=== PATIENT | female | born 1955 | race Caucasian/White ===

== ENCOUNTER 2019-10-29 13:31 | Emergency (ER) | payer BC, SELFPAY ==
--- NOTE | ~2019-10-29 | XR_ITS ---
EXAMINATION: XR lumbar spine min 4V EXAM DATE: 10/29/2019 14:31 INDICATION: Back pain for 10 days. TECHNIQUE: Lumber spine frontal, lateral, bilateral oblique projections. Coned down frontal and lat eral L5-S1 lumbar projections for interpretation. Comparison is made to prior examination from 09/25/19 16. FINDINGS: No endplate erosive change to suggest discitis. There is 5 mm retrolisthesis L1 on L2, 3 mm retrolisthesis L2 on L3 and L3 on L4. There is moderate disc disease at L5-S1. Mild to moderate disc disease L-1-2, L3-4 and L4-5, mild at L2-3. There are small upper lumbar endplate osteophytes. There is mild to moderate lumbar facet arthropathy. There is no spondylolysis. Sacrum, sacroiliac joints, sacral arcuate lines are intact. Paraspinal soft tissue is unremarkable. IMPRESSION: Mild to moderate lumbar spondylosis. No acute findings. Reviewed, dictated and finalized at location A.
[2019-10-29 13:27] VITALS: BP 174/78; PULSE 102; RESP 17; TEMP 36.8; O2SAT 96
--- NOTE | 2019-10-29 13:50 | ED.BACK ---
HPI - Back Pain/Injury General Chief Complaint: Back Pain/Injury Stated Complaint: back pain x10 days Source: patient and family Mode of arrival: EMS Limitations: no limitations History of Present Illness HPI Narrative: Patient is a 64-year-old female who presents to emergency department for evaluation of lower back pain noting aching pain of the right buttock that radiates into the thigh patient denies injury or trauma has taken [id number] medications with some improvement but notes today the pain worsened patient denies any fever chills nausea vomiting or illness patient has not been seen for this complaint also took a muscle relaxer today patient has not seen primary care but notes that she has had a similar occurrence in the past Related Data Allergies Allergy/AdvReac Type Severity Reaction Status Date / Time codeine Allergy Mild Nausea and Verified 10/29/19 13:35 Vomiting Sulfa (Sulfonamide Allergy Mild Rash Verified 10/29/19 13:35 Antibiotics) Review of Systems Review of Systems: All systems reviewed & are unremarkable except as noted in HPI and below PMFSH Past Medical History Medical History (Updated 10/29/19 @ 15:36 by Mayur Mora PA-C) Obesity Social History Social History Smoking status: Never smoker Exam Narrative: Exam Narrative: GENERAL: Well-appearing, obese, and in no acute distress. HEAD: Normocephalic, atraumatic. EYES: PERRLA and EOMI. ENT: Nares clear, no rhinorrhea or epistaxis. Mucous membranes moist. NECK: Supple. No adenopathy or masses. CHEST: Clear to auscultation. No respiratory distress. No wheezes rales or rhonchi HEART: Regular rate and rhythm. No murmur heard. Normal peripheral pulses. ABDOMEN: Soft, nontender, nondistended EXTREMITIES: Normal range of motion. No edema. Tenderness over the right buttock SI region no midline tenderness SKIN: Warm, dry, no rash. NEURO: No focal deficits. Alert and oriented x3. Cranial nerves II through XII grossly intact. Motor and sensory intact and symmetrical in the extremities neurovascularly intact. Capillary refill less than 2 seconds PSYCH: Normal mood and affect. Course Course Emergency Course: Patient in the room in no distress aware of case findings treatment plan and diagnosis agreeing to follow-up as directed provided with reasons to return given fluids and medications in the emergency department as well as IV antibiotic will be treated for back pain and urinary tract infection Vital Signs Vital signs: Vital Signs Temperature 98.2 F 10/29/19 13:27 Pulse Rate 102 H 10/29/19 13:27 Respiratory Rate 17 10/29/19 13:27 Blood Pressure 174/78 H 10/29/19 13:27 Pulse Oximetry 96 10/29/19 13:27 Temperature 98.5 F 10/29/19 15:25 Pulse Rate 62 10/29/19 15:25 Respiratory Rate 18 10/29/19 15:25 Blood Pressure 148/78 H 10/29/19 15:25 Pulse Oximetry 97 10/29/19 15:25 MDM - Back Pain/Injury MDM Narrative Medical decision making narrative: Patients pain is positional in nature and localized to back without signs of cord compression or cauda equina based on neurological exam, skeletal exam and history. No fever or other significant factors to suggest osteomyelitis or spinal epidural abscess. Will also be treated for urinary tract infection. No pulsatile masses noted on exam. Patient ambulates with steady gait and is stable for outpatient management given case findings. Lab Data Result diagrams: 10/29/19 14:08 10/29/19 14:08 Labs: Lab Results 10/29/19 10/29/19 10/29/19 Range/Units 14:08 14:08 14:08 WBC 7.5 (4.5-10.0) K/mm3 RBC 4.03 L (4.2-5.4) M/mm3 Hgb 12.2 (12.0-15.0) g/dL Hct 37.0 (37.0-47.0) % MCV 91.8 (80-100) fl MCH 30.3 (26-34) pg MCHC 33.0 (32-36) g/dl RDW 14.5 (11.5-14.5) % Plt Count 238 (150-375) k/mm3 MPV 9.6 (7.4-10.4) fl Immature
[2019-10-29] MEDS: diazePAM 5 MG TABLET PO (14:03)
[2019-10-29] MEDS: SODIUM CHLORIDE 0.9% IV 1,000 ML 999 ML IV CONT ×2 (14:05→15:00)
[2019-10-29 14:15] LABS: Basophils Absolute Auto 0.1 K/mm3 (0.0-0.1); Basophils Percent Auto 0.7 % (0.2-1.2); Eosinophils Absolute Auto 0.1 K/mm3 (0-0.3); Eosinophils Percent Auto 1.7 % (0-4.4); Hemoglobin 12.2 g/dL (12.0-15.0); Immature Granulocyte Absolute 0.04 K/mm3 (0.00-0.031); Immature Granulocyte Percent A 0.5 % (0-0.5); Lymphocytes Absolute Auto 1.92 K/mm3 (0.9-3.2); Lymphocytes Percent Auto 25.8 % (18.3-44.2); Mean Corpuscular Hemoglobin 30.3 pg (26-34); Mean Corpuscular Volume 91.8 fl (80-100); Mean Platelet Volume 9.6 fl (7.4-10.4); Monocytes Absolute Auto 0.5 K/mm3 (0.1-0.6); Monocytes Percent Auto 6.3 % (2.6-8.5); Neutrophils Absolute Auto 4.8 K/mm3 (1.3-6.7); Platelet Count Result 238 k/mm3 (150-375); Red Blood Count 4.03 M/mm3 (4.2-5.4); Red Cell Distribution Width 14.5 % (11.5-14.5); White Blood Count 7.5 K/mm3 (4.5-10.0)
[2019-10-29 14:23] LABS: Add Urine Microscopic? YES; Appearance Urine Cloudy (Clear); Bacteria Urine 2+ /hpf; Bilirubin Urine Negative (Negative); Blood Urine Negative (Negative); Color Urine Yellow (Yellow); Glucose Urine UA Negative (Negative); Ketones Urine Negative (Negative); Leukocyte Esterase Ur 1+ LEU/UL (Negative); Mucus Urine Rare /lpf; Nitrate Urine Negative (Negative); Protein Urine 3+ mg/dL (Negative); Specific Grav Ur 1.015 (1.001-1.035); Squamous Epithelial Cell Urine Moderate /hpf (Few); Urobilinogen Urine Negative mg/dL (<2.0); WBC Urine 21-30 /hpf
[2019-10-29 14:26] LABS: Anion Gap 7 mmol/L (8-16); Blood Urea Nitrogen 25 mg/dL (7-17); Calcium 10.1 mg/dL (8.4-10.2); Carbon Dioxide 27 mmol/L (22-30); Chloride 105 mmol/L (98-107); Estimated CRCL calculation 63 ml/min; Estimated Glomerular Filt Rate > 60; Glucose 105 mg/dL (65-105); Potassium 3.8 mmol/L (3.4-5.0); Sodium 139 mmol/L (137-145)
[2019-10-29 15:25] VITALS: BP 148/78; PULSE 62; RESP 18; TEMP 36.9; O2SAT 97
[2019-10-29] MEDS: KETOROLAC 30 MG/ML VIAL (*BKC) IV PUSH (15:38)
[2019-10-29 16:11] VITALS: TEMP 36.9
== END 2019-10-29 17:05 | disposition home or self-care (01) ==
PROVIDERS: Emergency Medicine Emergency Medical Services; Emergency Provider Emergency Medicine; PCP Emergency Medicine
DX: M54.16 Radiculopathy, lumbar region (principal); N39.0 Urinary tract infection, site not specified; E66.9 Obesity, unspecified; Z68.33 Body mass index [BMI] 33.0-33.9, adult
CPT/HCPCS: 36415; 72110; 80048; 81001; 85025; 87077; 87086; 87088; 87186; 96361; 96365; 96367; 96375; 99284; A9270; J0131; J0696; J1100; J1885; J7030

== ENCOUNTER → 2019-12-21 15:49 | Outpatient (CLI) | payer BC, SELFPAY ==
--- NOTE | ~2019-12-21 | MM_ITS ---
EXAMINATION: MM screening [facility] BI w sarika HISTORY: Screening mammogram TECHNIQUE: Craniocaudal and mediolateral oblique 3-D tomosynthesis images were obtained and synthetic 2-D images were generated. CAD analysis was submitted and interpreted. COMPARISON: 05/16/2018, 04/30/2017, 09/25/2015, 05/18/2014 BREAST PARENCHYMAL COMPOSITION: There are scattered areas of fibroglandular density. FINDINGS: Stable bilateral breast masses are present, considered benign given the lack of interval ch lori. There is no evidence of suspicious mass, calcification, or architectural distortion to suggest malignancy in either breast. There has been no suspicious interval change. IMPRESSION: 1. No mammographic evidence of malignancy. 2. Recommend routine screening mammography in one year. BI-RADS Category 2: Benign finding(s). Reviewed, dictated and finalized at location A.
== END ==
PROVIDERS: PCP Emergency Medicine; Visit Provider Nurse Practitioner Obstetrics & Gynecology
DX: Z12.31 Encounter for screening mammogram for malignant neoplasm of breast (principal)
CPT/HCPCS: 77063; 77067

== ENCOUNTER → 2021-01-22 12:20 | Outpatient (CLI) | payer BC, SELFPAY ==
--- NOTE | ~2021-01-22 | MM_ITS ---
EXAMINATION: MM screening [facility] BI w sarika HISTORY: Screening TECHNIQUE: Craniocaudal and mediolateral oblique 3-D tomosynthesis images were obtained and synthetic 2-D images were generated. CAD analysis was submitted and interpreted. COMPARISON: Comparison to multiple prior studies sequentially, with oldest reviewed study dated 05/18. BREAST PARENCHYMAL COMPOSITION: Breast composed of scattered areas of fibroglandular density. FINDINGS: Left breast masses are stable compared with prior examinations. There is no evidence of jaquelin picious mass, calcification, or architectural distortion to suggest malignancy in either breast. Ther e has been no suspicious interval change. IMPRESSION: 1. No mammographic evidence of malignancy. 2. Recommend routine screening mammography in one year. BI-RADS Category 2: Benign finding(s). Reviewed, dictated and finalized at location A.
== END ==
PROVIDERS: PCP Emergency Medicine; Visit Provider Nurse Practitioner Obstetrics & Gynecology
DX: Z12.31 Encounter for screening mammogram for malignant neoplasm of breast (principal)
CPT/HCPCS: 77063; 77067

== ENCOUNTER → 2022-04-16 13:44 | Outpatient (CLI) | payer BC, SELFPAY ==
--- NOTE | ~2022-04-16 | MM_ITS ---
EXAMINATION: MM screening [facility] BI w sarika HISTORY: Screening mammogram TECHNIQUE: Craniocaudal and mediolateral oblique 3-D tomosynthesis images were obtained and synthetic 2-D images were generated. CAD analysis was submitted and interpreted. COMPARISON: 01/22/2021, 12/21/2019, 05/16/2018 BREAST PARENCHYMAL COMPOSITION: There are scattered areas of fibroglandular density. FINDINGS: There are stable bilateral breast masses, considered benign given the lack of interval ferrari ge. No suspicious mass, calcification, or architectural distortion are identified in either breast to suggest malignancy. There has been no suspicious interval change. IMPRESSION: 1. No mammographic evidence of malignancy. 2. Recommend routine screening mammography in one year. BI-RADS Category 2: Benign finding(s). Reviewed, dictated and finalized at location A. N BLOCKER
== END ==
PROVIDERS: PCP Emergency Medicine; Visit Provider Emergency Medicine
DX: Z12.31 Encounter for screening mammogram for malignant neoplasm of breast (principal)
CPT/HCPCS: 77063; 77067

== ENCOUNTER → 2023-05-19 08:38 | Outpatient (CLI) | payer MEDICARE, SELFPAY ==
--- NOTE | ~2023-05-19 | DEXA_ITS ---
Bone Density Report Name: SARAH CASE Age: 67 Sex: Female Ethnicity: White Date of : 1955 Indication: postmenopausal; screening for osteoporosis; Referring Provider: ROSA PITTMAN Study: Bone densitometry was performed. Exam Date: May 19, 2023 Accession number: [id number] Bone Density: Region BMD T-score Z-score Classification AP Spine (L1, L3, L4) 1.299 2.2 4.1 Normal Femoral Neck (Left) 1.090 2.2 3.7 Normal Total Hip (Left) 1.257 2.6 3.9 Normal Femoral Neck (Right) 1.038 1.7 3.3 Normal Total Hip (Right) 1.221 2.3 3.6 Normal Total Hip Mean 1.239 2.5 3.8 Normal World Health Organization criteria for BMD impression classify patients as: Normal (T-score at or above -1.0), Osteopenia (T-score between -1.0 and -2.5), or Osteoporosis (T-score at or below -2.5). 10-year Fracture Risk: FRAX not reported because: All T-scores for Spine Total, Hip Total, Femoral Neck at or above -1.0 Previous Exams: Region Exam Age BMD T-score BMD Change BMD Change Date g/cm2 vs Baseline vs Previous AP Spine(L1, L3, L4) 05/19/2023 67 1.299 2.2 0.163 0.088 05/16/2018 62 1.210 1.4 0.075* 0.014 09/27/2015 60 1.196 1.3 0.061* 0.019 12/04/2011 56 1.177 1.1 0.042* 0.042* 02/08/2008 52 1.135 0.7 Total Hip(Left) 05/19/2023 67 1.257 2.6 0.179 0.083 05/16/2018 62 1.173 1.9 0.096* -0.013 09/27/2015 60 1.187 2.0 0.109* 0.033* 12/04/2011 56 1.153 1.7 0.075* 0.075* 02/08/2008 52 1.078 1.1 Total Hip(Right) 05/19/2023 67 1.221 2.3 0.113 0.033 05/16/2018 62 1.189 2.0 0.080* 0.037* 09/27/2015 60 1.151 1.7 0.042* -0.047* 12/04/2011 56 1.198 2.1 0.089* 0.089* 02/08/2008 52 1.109 1.4 *Denotes significance at 95% confidence level, LSC for AP Spine = 0.022 g/cm2, LSC for Total Hip = 0.027 g/cm2 Clinical Information Provided by Patient: Has used the following medications: Vitamin D, LEVOTHYROXINE Patient maximum height was 61.8 Menopause Age: 53 No regular weight bearing exercise Drinks caffeinated beverages Onset of menses at age 14 Number of children 0 Impression: The patient has normal bone mass. No significant bone loss was observed. Discussion: Brianne
== END ==
PROVIDERS: PCP Emergency Medicine; Visit Provider Emergency Medicine
DX: Z13.820 Encounter for screening for osteoporosis (principal); Z78.0 Asymptomatic menopausal state
CPT/HCPCS: 77080

== ENCOUNTER 2023-07-21 11:15 | Outpatient (CLI) | payer MEDICARE, SELFPAY ==
--- NOTE | ~2023-07-21 | MM_ITS ---
EXAMINATION: MM screening [facility] BI w sarika HISTORY: Screening TECHNIQUE: Craniocaudal and mediolateral oblique 3-D tomosynthesis images were obtained and synthetic 2-D images were generated. CAD analysis was submitted and interpreted. COMPARISON: Comparison to multiple prior studies sequentially, with oldest reviewed study dated 11/2017. BREAST PARENCHYMAL COMPOSITION: Not dense: There are scattered areas of fibroglandular density. FINDINGS: Stable benign-appearing left breast mass. There is no evidence of suspicious mass, calcific ation, or architectural distortion to suggest malignancy in either breast. There has been no suspicio us interval change. IMPRESSION: 1. No mammographic evidence of malignancy. 2. Recommend routine screening mammography in one year. BI-RADS Category 2: Benign finding(s). Reviewed, dictated and finalized at location B.
== END 2023-07-21 11:16 ==
LOC: MICIMG 11:16
PROVIDERS: PCP Emergency Medicine; Visit Provider Emergency Medicine
DX: Z12.31 Encounter for screening mammogram for malignant neoplasm of breast (principal)
CPT/HCPCS: 77063; 77067

== ENCOUNTER 2023-12-21 11:22 | Outpatient (CLI) | payer MEDICARE, SELFPAY ==
--- NOTE | ~2023-12-21 | XR_ITS ---
3 VIEWS LUMBAR SPINE Ordering provider: Gatito Greenberg MD History: . M54.50 - Low back pain, unspecified . Comparison: October 29, 2019 FINDINGS: VERTEBRAL BODIES: No visible fracture or subluxation. Degenerative changes of the spine. Possible spondylolysis at the level of L5-S1. DISK SPACES: Narrowing of the disc L1-L2, L2-L3, L4-L5 and L5-S1. Multilevel facet joint disease. SOFT TISSUES: Normal. IMPRESSION: No acute osseous abnormality lumbar spine. Multilevel degenerative disc disease. Reviewed, dictated and finalized at location A.
== END 2023-12-21 11:23 | disposition home or self-care (01) ==
LOC: MICIMG 11:25
PROVIDERS: PCP Emergency Medicine; Visit Provider Emergency Medicine
DX: M51.369 Other intervertebral disc degeneration, lumbar region without mention of lumbar back pain or lower extremity pain (principal); M54.50 Low back pain, unspecified
CPT/HCPCS: 72100

== ENCOUNTER 2024-10-13 13:27 | Outpatient (CLI) | payer MEDICARE, SELFPAY ==
--- NOTE | ~2024-10-13 | MM_ITS ---
EXAMINATION: MM screening asif BI w sarika HISTORY: Screening TECHNIQUE: Craniocaudal and mediolateral oblique 3-D tomosynthesis images were obtained and synthetic 2-D images were generated. CAD analysis was submitted and interpreted. COMPARISON: Comparison to multiple prior studies sequentially, with oldest reviewed study dated 11/2017. BREAST PARENCHYMAL COMPOSITION: Not dense: There are scattered areas of fibroglandular density. FINDINGS: There is no evidence of suspicious mass, calcification, or architectural distortion to sugg est malignancy in either breast. There has been no suspicious interval change. IMPRESSION: 1. No mammographic evidence of malignancy. 2. Recommend routine screening mammography in one year. BI-RADS Category 1: Negative Reviewed, dictated and finalized at location A.
--- OUTSIDE RECORDS SUMMARY | 2024-10-13 13:33 | XMS_ITS | Data Portability ---
Author Organization [facility] Address [address] [place] [address] Care Team Providers Care Airframe Technical Officer Name Role Phone ROSA PITTMAN Primary Care Provider [phone] Assessment Encounter Date Assessment Date Assessment LastModified by Organization Details LastModified Time 09/15/2019 09/15/2019 Annual gynecological exam performed. Patient will come back in a year unless there are new symptoms. [email or web address] Not available 09/15/2019 13:13:01 01/22/2021 01/22/2021 Annual gynecological exam performed. Patient will come back in a year unless there are new symptoms. Not available 01/21/2021 17:21:04 Plan of Treatment Reminders Order Date Submit Date Provider Last Modified By Organization Details Last Modified Time Details Appointments None record ed. Lab None record ed. Referral None record ed. Procedures None record ed. Surgeries None record ed. Imaging None record ed. Medication Orders None record ed. Patient TargetsNo targets recorded. Patient Instructions Encounter Date Encounter Id Patient Instructions Last Modified By Organization Details Last Modified Time 09/15/2019 [id number] [email or web address] Not available 13:13:32 Reason for Referral None Reported. Results Created Date Observation Date Name Description Value Unit Range Abnormal Flag Note LastModifiedBy Organization Detail LastModifiedTime 12/22/1912/21/2019 MAMMO rbiana bilat eral No observ ation record ed. layran [facility] [address], [place], [address], 12/27/2019 15:06:21 01/23/2001/22/2021 MAMMO , scree nilson, bilat eral No observ ation record ed. jalil [facility] [address], [place], [address], 01/30/2021 12:47:22 Result Notes None recorded. Problems Name Problem SNOMED Code Status Onset Date Resolution Date Notes Provider Name and Address Organization Details Recorded Time Adult health examinat ion Completed 201101/21/2021 Routine Medical Exam;Toño rded Elsewhere : No Locati on: [facility] So urce: EHR Chron ic: N Practic e ID: [id number] Bill able Time: 11:00:00 AM [facility] 17:11:09 Obesity [id number] Completed 201401/21/2021 Obesity;R ecorded Elsewhere : No Locati on: [facility] So urce: EHR Chron ic: N Practic e ID: [id number] Bill able Time: 10:30:[address] [facility] 17:11:13 Screenin g for malignan t neoplasm of rectum Completed 201401/21/2021 Screening for malignant neoplasms of the rectum;Re corded Elsewhere : No Locati on: [facility] So urce: EHR Chron ic: N Practic e ID: [id number] Bill able Time: 10:30:00 AM Daiana [facility] 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 17:11:20 Body mass index 30+ - obesity [id number] Completed 201501/21/2021 Body mass index (BMI) 32.0-32.9 , adult;Rec orded Elsewhere : No Locati on: [facility] So urce: EHR Chron ic: N Practic e ID: [id number] Bill able Time: 11:00:00 AM Daiana [facility] 17:11:[address] Concept Completed 201701/21/2021 Encntr for equal opportunity counselor exam (general) (routine) w/o abn findings; Recorded Elsewhere : No Locati on: [facility] So urce: EHR Chron ic: N Practic e ID: [id number] Bill able Time: 10:15:00 AM [facility] 17:11:19 Screenin g for malignan t neoplasm of cervix Completed 201701/21/2021 Screening for malignant neoplasms of the cervix;Re corded Elsewhere : No Locati on: [facility] So urce: EHR Chron ic: N Practic e ID: [id number] Bill able Time: 10:15:00 AM [facility] 17:11:[address] Concept Completed 201801/21/2021 Encntr for general adult medical exam w/o abnormal findings; Recorded Elsewhere : No Locati on: [facility] So urce: EHR Chron ic: N Practic e ID: 0001 Bill able Time: 11:00:00 AM [facility] 17:11:17 Problem Notes None recorded. Procedures Surgical History Date Name Laterality Status Provider Name and Address Organization Details Recorded Time 0 Date of Last Mammogram completed [facility] 01/21/2021 17:15:[address] [facility] 01/21/2021 17:19:38 9 Date of Last Pap Smear completed [facility] 01/21/2021 17:17:40 cryosurgery completed Sharmila Vitaly [place] - [facility] 09/15/2019 11:58:44 Carpal tunnel surgery completed Sharmila Haider [facility] 09/15/2019 11:58:56 Imaging Results None recorded. Procedure Notes None recorded. Medical Equipment None Reported. Allergies Allergen ID Allergen Name Allergen Category Reaction Reaction Severity Criticality Documentation Date Start Date Code Code System Note Provider Name and Address Organization Details Recorded Time 1109 codeine medicatio n Not available Not available Not available 09/15/2019 2670 RxNorm Sharmila gómez [facility] 0 11:56:03 1110 Substance with sulfonami de structure and antibacte rial mechanism of action (substanc e) medicatio n Not available Not available Not available 09/15/2019 18777 8003 SNOMED Sharmila gómez [facility] 0 11:56:08 Medications Name Sig Start Date Stop Date Status Note LastModified by Organization Details LastModified Time metformin 500 mg tablet 01/22 completed Not Available Not Available Not Available potassium chloride ER 10 mEq capsule,e xtended release take 2 capsule (20MEQ) by oral route every day with food 05/16 completed Prescrib ed Elsewher e: No Locat ion: [facility] odify By: fabio ross DateTime : 12/04/19 12 11:00:00 AM Not Available Not Available Not Available allopurin ol 100 mg tablet take 1 tablet by oral route 3 times every day active Not Available Not Available No t Available levothyro xine 75 mcg tablet active Not Available Not Available Not Available potassium 99 mg tablet 01/22 completed Prescrib ed Elsewher e: Yes Loca tion: [facility] odify By: melani velazquez DateTime : 04/30/19 18 10:15:00 AM Not Available Not Available Not Available lisinopri l 20 mg-hydroc hlorothia zide 25 mg tablet take 1 tablet by oral route every day active Not Available Not Available No t Available Klor-Con M20 mEq tablet,ex tended release active Not Available Not Available Not Available Riomet 500 mg/5 mL oral solution take 10 millilit er by oral route 2 times every day with meals 05/16 completed Prescrib ed Elsewher e: Yes Loca tion: Maria Fernanda flores [facility] odify By: fabio solitariounter DateTime : 04/30/19 18 10:15:00 AM Not Available Not Available Not Available potassium acetate 01/22 completed Not Available Not Available Not Available aspirin active Not Available Not Avail able Not Available levothyro xine 01/22 completed Not Available Not Available Not Available lisinopri l 01/22 completed Not Available Not Available Not Available allopurin ol 01/22 completed Not Available Not Available Not Available Vitamin D3 01/22 completed Not Available Not Available Not Available Vitamin D3 10 mcg (400 unit) capsule active Prescrib ed Elsewher e: Yes Loca tion: Maria Fernanda flores [facility] odify By: melani Encounte r DateTime : 04/30/19 18 10:15:00 AM Not Available Not Available Not Available Tirosint 13 mcg capsule take 1 capsule by oral route every day 01/22 completed Prescrib ed Elsewher e: Yes Loca tion: Maria Fernanda flores [facility] odify By: melani Encounte r DateTime : 04/30/19 18 10:15:00 AM Not Available Not Available Not Available aloglipti n 12.5 mg-metfor min 500 mg tablet active Not Available Not Available No t Available Durlaza 162.5 mg capsule,e xtended release take 1 capsule by oral route every day at the same time each day 05/16 completed Prescrib ed Elsewher e: Yes Loca tion: Maria Fernanda flores [facility] odify By: fabio Flores ncounter DateTime : 04/30/19 18 10:15:00 AM Not Available Not Available Not Available Qbrelis 1 mg/mL oral solution take 10 millilit er by oral route every day 01/22 completed Prescrib ed Elsewher e: Yes Loca tion: Maria Fernanda flores [facility] odify By: melani Encounte r DateTime : 04/30/19 18 10:15:00 AM Not Available Not Available Not Available Vitals Date Recorded Body height Body mass index (BMI) Body weight Systolic And Diastolic Provider Name and Address Organization Details Last Updated DateTime 09/15/2019 1859.28 cm 0.2 kg/m2 35552.18 g 137/88 mm[Hg] Sharmila Haider [facility] 09/15/2019 11:55:59 Date Recorded Systolic And Diastolic Provider Name and Address Organization Details Last Updated DateTime 01/22/2021 132/78 mm[Hg] Michelle Arriaga, [facility]- [address], [place], [address], [facility] 01/22/2021 13:47:24 Date Recorded Body height Body mass index (BMI) Body weight Provider Name and Address Organization Details Last Updated DateTime 01/22/2021 154.94 cm 34.4 kg/m2 81240.81 g Daiana Mccann [facility] 01/22/2021 12:44:38 Social History Question Answer Notes LastModified by Organizat ion Details LastModified Time Tobacco Smoking Status Never Smoker Daiana Mccann [facility], [facility] 01/22/2021 12:45:05 Are You Blind Or Do You Have Difficulty Seeing? No Information n ot available 01/21/2021 What Is Your Level Of Caffeine Consumption? Moderate Information not available 01/22/2021 In The 14 Days Before Symptom Onset, Have You Had Close Contact With A Laboratory-confirm ed COVID-19 While That Case Was Ill? No Information n ot available 01/22/2021 In The 14 Days Before Symptom Onset, Have You Had Close Contact With A Person Who Is Under Investigation For COVID-19 While That Person Was Ill? No Information not available 01/22/2021 Have You Been To An Area Known To Be High Risk For COVID-19? No Information not available 01/22/2021 Are You Deaf Or Do You Have Serious Difficulty Hearing? No Information not available 01/21/2021 What Type Of Diet Are You Following? DIABETIC Information n ot available 01/22/2021 What Is The Highest Grade Or Level Of School You Have Completed Or The Highest Degree You Have Received? [id number] Information not available 01/22/2021 Are There Any Guns Present In Your Home? No Information not available 01/22/2021 Do You Use Your Seat Belt Or Car Seat Routinely? Yes Information not available 01/21/2021 Do You Have Smoke And Carbon Monoxide Detectors In Your Home? Yes Information not available 01/21/2021 How Much Tobacco Do You Smoke? No Information not available 01/22/2021 Do You Use Sunscreen Routinely? Yes Information not available 01/21/2021 Have You Used IV Drugs? No Information not available 01/22/2021 Sex: Unknown Functional Status Question Answer Note LastModified by Organizat ion Details LastModified Time Do you use any illicit or recreational drugs? No Information not available 01/21/2021 What is your level of alcohol consumption? None Information not available 01/22/2021 Are you able to walk? 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 Moderate Information not available 01/22/2021 Mental Status Question Answer Note LastModified by Organization D etails LastModified Time Do you feel stressed (tense, restless, nervous, or anxious, or unable to sleep at night)? [id number] Information not available 01/22/2021 Family History Relationship Description Onset Age of this Age Resolved Age Notes LastModified by Organization Details LastModified Time Father Hypertensive disorder [email or web address] Not available 2019 11:57:19 Mother Carcinoma of lung [email or web address] Not available 2020 12:24:57 Paternal Grandmother Carcinoma in situ of colon [email or web address] Not available 2020 12:24:57 Maternal Grandmother Carcinoma of breast [email or web address] Not available 2020 12:24:57 Paternal Aunt Carcinoma of breast [email or web address] Not available 2020 12:24:57 Sister Cyst of ovary [email or web address] Not available 2020 12:24:57 Medical History Condition Response Cancer Y Asthma Y Anemia Y Gynecological History Statement/Question Response Abnormal Pap Y Date of Last Mammogram 12/21/2019 N Was last menstrual period normal Y STIs/STDs N HPV Vaccine N Duration of Flow (days) 5 05/24/2018 Current Control Method Menopause If Post Menopausal, Age at Menopause 52 Frequency of Cycle (Q days) 30 Sexually Active? N Age of first menstrual cycle 15 Date of Last Pap Smear 05/16/2018 Sexual Problems? N N Obstetrics History GPAL:G 0 P 0 0 0 0 Type Value Living 0 Total 0 Past Encounters Encounter ID Performer Location Encounter Start Date Encounter Closed Date Diagnosis/Indication Diagnosis SNOMED-CT Code Diagnosis ICD10 Code Diagnosis Note [id number] Michelle Arriaga [facility] [address],[facility] [place] [address] 09/15/2019 11:47:41 09/15/2019 13:29:37 Gynecologic examination 85099508 Z01.419 Take Calcium with Vitamin D 12-1500mg daily. Do monthly self breast exams. It is advised to get annual flu shot in the fall and she could obtain at [facility] or [facility] clinic. If you haven't received the Tdap vaccine in the last 10 years you should obtain one as well. Have mammogram yearly, bone density every 2-3 years and colonoscop y every 5-10 years depending on findings and history. Engage in daily exercise of low impact aerobic exercise 45-60 minutes 4-5 times weekly. Avoid tobacco and illicit drugs as well as using moderation with alcohol intake less than 1-2 8 oz beverages daily. This lifestyle behavior pattern will lead to less health conditions and longer life span. If BMI greater than 25 weight watchers or dietary consult advised. Questions have been answered. Patient appears to understand instructio ns, but if you have any further questions call or respond to this email Pap/HPV 2018 wnl Defer pap/hpv this year per asccp unless otherwise indicated. [id number] [facility] [address],[facility] [place] [address] 01/22/2021 12:21:50 01/22/2021 14:46:25 Gynecologic examination 13662413 Z01.419 Take Calcium with Vitamin D 12-1500mg daily. Do monthly self breast exams. It is advised to get annual flu shot in the fall and she could obtain at [facility] or [facility] clinic. If you haven't received the Tdap vaccine in the last 10 years you should obtain one as well. Have mammogram yearly, bone density every 2-3 years and colonoscop y every 5-10 years depending on findings and history. Engage in daily exercise of low impact aerobic exercise 45-60 minutes 4-5 times weekly. Avoid tobacco and illicit drugs as well as using moderation with alcohol intake less than 1-2 8 oz beverages daily. This lifestyle behavior pattern will lead to less health conditions and longer life span. If BMI greater than 25 weight watchers or dietary consult advised. Questions have been answered. Patient appears to understand instructio ns, but if you have any further questions call or respond to this email Pap/HPV 2018 wnl Defer pap/hpv this year per asccp unless otherwise indicated. Next pap/hpv age 66yoHad abn pap/hpv in but has had no other abn's since this time.Not SANot in a [facility] ip since .Col on-UTD PCPDexa-du e 2021Mammo orderedNo other issues or concerns. Health Concerns Section Related Observation LastModified by Organization Detai ls LastModified Time None Recorded Concern Status LastModified by Organization Details LastModified Time None Recorded Advance Directives Directive None Recorded Payers Insurance Date Sequence Insurance Name Policy Number Policy Soliz Covered Member ID Soliz Member ID Guarantor Name 07/31/2023 1 [place] [id number] Amelda A Hernando [id number] Amelda A Hernando 07/31/2023 1 [place] [id number] Amelda A Hernando [id number] Devinda A Hernando Notes Date Note Type Note Provider Name and Address Organization Details Recorded Time 0 text/html Annual GYNReported by PatientHistoryFor history, patient reportsno gynecologic complaints.Genitourinary symptomsFor menstrual cycle, patient reportsnormal menses. For urinary symptoms, patient reportsno hematuriaandno incontinence. For vulva, patient reportsno genital lesion. For vagina, patient reportsnormal vaginal discharge.Breast symptomsFor breast, patient reportsno breast pain,no breast lump, andno nipple discharge.ContraceptionFo r current contraception, (postmenopausal).Endocrin e symptomsFor sexual complaints, patient reportsno sexual complaints,no pain during intercourse, andnormal libido. For menopausal symptoms, patient reportsno menopausal symptomsandnormal vaginal lubrication.Psychological symptomsFor psychological symptoms, patient reportsno depression,no anxiety, andno pmdd.Preventative measuresFor preventive measures, patient reportsencourage self breast examination,encourage regular exercise,encourage no tobacco use,encourage regular mammograms starting age 40,needs to schedule mammogram, andup to date on colonoscopy screening(dexa 2019). Michelle Arriaga [facility] [address], [place], [address], [facility] 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 For vaginal bleeding, patient reportshistory of menopause having occurredandno history of post menopausal bleeding. For urinary symptoms, patient reportsno hematuria,no incontinence,no nocturia, andno urinary frequency. For vulva, patient reportsno genital lesionandno vulvar atrophy. For vagina, patient reportsnormal vaginal dischargeandno vaginal atrophy.Breast symptomsFor breast, patient reportsno breast lump,no nipple discharge, andno breast pain.Psychological symptomsFor sexual complaints, patient reportsno sexual complaints. For psychological symptoms, patient reportsno depressionandno anxiety.Preventative measuresFor preventive measures, patient reportsencourage regular mammograms starting age 40,encourage self breast examination,encourage regular exercise,encourage no tobacco use,needs to schedule mammogram, andhistory of recent colonoscopy(last dexa 2019 wnl.). Michelle Arriaga JACQUE- [address], [place], [address], [facility] 01/22/2021 13:50:37 OBGyn Episode No OBEpisode recorded.
--- OUTSIDE RECORDS SUMMARY | 2024-10-13 13:33 | XMS_ITS | Clinical Summary ---
Author Organization [facility] Address [address] [facility] [address] [place] [address] Phone Care Team Providers Care Belt Worker Name Role Phone Gatito Greenberg MD Primary Care Provider [phone] Allergies Active Allergy Reactions Criticality Noted Date Comments Codeine Nausea 04/01/2020 Elemental Sulfur Hives 04/01/2020 Medications allopurinol (ZYLOPRIM) 100 MG Tablet Take 100 mg by mouth daily. 03/25/2020 Active levothyroxine (SYNTHROID) 75 MCG Tablet Take 75 mcg by mouth daily. 03/25/2020 Active lisinopril-hydro CHLOROthiazide (PRINZIDE, ZESTORETIC) 20-25 MG Tablet Take 20-25 mg by mouth daily. 03/25/2020 Active Klor-Con M20 20 MEQ Tablet Controlled Release Take 20 mEq by mouth daily. 03/25/2020 Active Cholecalciferol (VITAMIN D3 PO) Take by mouth. 2000 IU per day Active aspirin EC 81 MG Tablet Delayed Response Take 81 mg by mouth daily. Active Family History Medical History Relation Name Comments Heart Attack Father Lung Cancer Mother Kidney Disease Sister 3 waiting list for transplant Relation Name Status Comments Father Mother Sister 1 Sister 2 Alive Sister 3 Alive Social History Tobacco Use Types Packs/Day Years Used Date Smoking Tobacco: Never Smokeless Tobacco: Never Alcohol Use Standard Drinks/Week Comments Yes 0 (1 standard drink = 0.6 oz pur e alcohol) rare Comments No Sex and Gender Information Value Date Recorded Sex Assigned at Not on file Legal Sex Female 1:15 PM INVESTIGATOR NARCOTICS Gender Identity Not on file Sexual Orientation Not on file Last Filed Vital Signs Vital Sign Reading Time Taken Comments Blood Pressure - - Pulse 98 04/01/2020 1:49 PM INVESTIGATOR NARCOTICS Temperature 36.5 C (97.7 F) 04/01/2020 1:49 PM INVESTIGATOR NARCOTICS Respiratory Rate - - Oxygen Saturation 98% 04/01/2020 1:49 PM INVESTIGATOR NARCOTICS Inhaled Oxygen Concentration - - Weight 86.2 kg (190 lb) 04/01/2020 1:49 PM INVESTIGATOR NARCOTICS Height - - Body Mass Index - - Plan of Treatment Health Maintenance Due Date Last Done Comments Hepatitis C Virus (HCV) Screening 1955 TdaP Immunization 1955 Cologuard 2002 Colonoscopy 2002 Colorectal Cancer Screening 2002 Immunochemical Fecal Occult Blood 2002 Pneumococcal Immunization (5 0+ years) (1 of 1 - PCV) 06/05/2007 Zoster Immunization (1 of 2) 06/05/2007 SARS-COV-2 Immunization (3 - season) 2023 08/01/2020, 07/04/2020 Influenza Immunization (#1) 2024 Respiratory Syncytial Virus (RSV) Immunization (Adult) (1 - 1-dose 75+ series) 2032 Hepatitis B Immunization Aged Out No longer eligible based on patient's age to complete this topic Human Papillomavirus (HPV) Immunization Aged Out No longer eligible b ased on patient's age to complete this topic Meningococcal Immunization (ACWY) Aged Out No longer eligible b ased on patient's age to complete this topic Rotavirus Immunization Aged Out No lo nger eligible based on patient's age to complete this topic Insurance Care Teams Belt Worker Relationship Specialty Start Date End Date Gatito Greenberg MD [address] [place] [address] PCP - General Internal Medicine 02/06/20
== END 2024-10-13 13:28 | disposition home or self-care (01) ==
LOC: CHSIMG 13:31
PROVIDERS: PCP Emergency Medicine; Visit Provider Emergency Medicine
DX: Z12.31 Encounter for screening mammogram for malignant neoplasm of breast (principal)
CPT/HCPCS: 77063; 77067